=== PATIENT | female | born 1955 | race Caucasian/White ===

== ENCOUNTER 2017-05-10 13:41 | Emergency (ER) | payer SELFPAY ==
[~2017-05-10] VITALS: Ht 170.2 cm; Wt 99.8 kg
[2017-05-10 14:13] VITALS: BP 139/60
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
== END 2017-05-10 16:00 | disposition home or self-care (01) ==
LOC: ER 13:41
DX: S52.512A Displaced fracture of left radial styloid process, initial encounter for closed fracture (principal); M25.512 Pain in left shoulder; M25.522 Pain in left elbow; I10 Essential (primary) hypertension; V49.49XA Driver injured in collision with other motor vehicles in traffic accident, initial encounter; Y93.89 Activity, other specified; Y92.89 Other specified places as the place of occurrence of the external cause; Y99.8 Other external cause status
CPT/HCPCS: 73030; 73080; 73090; 73130; 99284

== ENCOUNTER → 2018-10-25 | Outpatient (CLI) | payer OTHER ==
--- NOTE | 2018-10-25 13:32 | KCIC ---
EXAM: Dual energy x-ray absorptiometry (DEXA). HISTORY: Postmenopausal female presents for osteoporosis screening. COMPARISON: None. TECHNIQUE: Dual energy x-ray absorptiometry of the lumbar spine and left hip was performed. Calculation of bone mineral density based on standard deviations above or below the expected young adult normal value (T-score) was completed. FINDINGS: The average bone mineral density in the 1st through 4th lumbar vertebrae is 0.931 g/cmxcm, corresponding with a T-score of -1.1. The average total bone mineral density in the left hip is 0.886 g/cmxcm, corresponding with a T-score of -0.5. IMPRESSION: 1. Osteopenia measured at the lumbar spine. 2. Normal bone mineral density measured at the left hip. Note: Definitions established by the World Health Organization: 1. Normal: T-score is -1.0 or above. 2. Osteopenia: T-score is between -1.0 and -2.5 . 3. Osteoporosis: T-score is -2.5 or below. Electronically signed by: Lida Gomez MD (10/25/2018 1:28 PM) [facility]
--- NOTE | 2018-10-25 15:11 | KCIC ---
Bilateral digital screening mammograms: Reason for examination: Routine screening. Comparison is made to previous study dated 05/05/2014. Interpretation was made with the benefit of CAD. The skin and nipples show no abnormalities. No abnormal lymph nodes are seen. The breast parenchyma is predominantly fatty. (Breast density: Category A.) There are no dominant masses, suspicious calcifications or architectural distortions. Benign calcifications are again seen. Impression: No evidence of malignancy. Recommend routine screening. BI-RADS Category 2: Benign. "Our facility is accredited by the [employer] Mammography Program." This patient's information has been entered into a reminder system for the patient to be notified with the results of her examination and a target date for the next mammogram. Electronically signed by: Laurie Antoine MD (10/25/2018 3:07 PM) [facility]
== END | disposition home or self-care (01) ==
LOC: KCIC DEXA 12:16
PROVIDERS: ATTEND Family Medicine
DX: Z12.31 Encounter for screening mammogram for malignant neoplasm of breast (principal); M85.88 Other specified disorders of bone density and structure, other site; Z78.0 Asymptomatic menopausal state
CPT/HCPCS: 77067; 77080

== ENCOUNTER → 2018-11-15 | Day surgery (SDC) | payer OTHER ==
[~2018-11-15] MED LIST: ALBU2.5V8 INH; ASPI-630 PO; ERGO500027 PO; HYDROmorphone 2 MG/ML VIAL IV PRN; KETO10DR6 EACHEYE; LIDOCAINE 1% PF 2 ML VIAL. ID PRN; MORPHINE SULFATE 4 MG/ML VIAL. IV PRN; MULT1TAB52 PO; MV-M1TAB29 PO; ONDANSETRON PF 4 MG/2 ML VIAL. IV PRN; OTC POTASSIUM PO; OXYC1TAB15 PO; PROCHLORPERAZINE 10 MG/2 ML VIAL. IV PRN; PROPOFOL 20 ML IV ONE; PROPOFOL 60 ML IV ONE; RANI150C PO; SERT100T PO; TRIA1TAB3 PO; VENTOLIN HFA18 GM INH; fentaNYL PF VIAL 100 MCG/2 ML VIAL IV PRN
[2018-11-15] MEDS: IV RINGERS,LACTATED 1000ML 1,000 ML IV SCH ×2 (07:00→10:06)
[2018-11-15 11:00] VITALS: BP 120/59
--- NOTE | 2018-11-16 17:10 | PATHOLOGY ---
[facility] Accession Number: [id number] . 01 Material submitted: . PART A: SMALL BOWEL BIOPSY PART B: RANDOM GASTRIC BIOPSY PART C: DISTAL ESOPHAGEAL BIOPSY PART D: BIOPSY NODULARITY ASCENDING COLON . 01 Clinical history: . Reflux, rectal bleeding. B: Rule out H. pylori. C: Rule out Membreno's . 02 Diagnosis: A. Small bowel biopsy: - No significant pathologic abnormalities. . B. Random gastric biopsy: - Chronic gastritis, mild. . C. Esophageal biopsy, distal esophagus: - Segments of hyperplastic squamous esophageal mucosa and gastric mucosa showing chronic inflammation, consistent with reflux esophagitis. . D. Colon biopsy, ascending colon: - Focal mild edema and recent hemorrhage of lamina propria. . (JPM:malissa; 11/16/2018) MBR/11/16/2018 . 02 Comment: Sections of the small bowel biopsy reveal segments of duodenal and small intestine mucosa. Where best oriented, mucosal villi show no sprue-like changes or significant inflammatory changes. Sections of the random gastric biopsy reveal segments of gastric body and antral/body transition mucosa showing congestion and mild chronic inflammation. A properly controlled immunoperoxidase stain for Helicobacter is negative for Helicobacter organisms. Sections of the distal esophageal biopsy reveal segments of tangentially oriented mildly hyperplastic squamous esophageal mucosa, and gastric mucosa showing mild to moderate chronic inflammation. The findings are consistent with reflux esophagitis. There is no evidence of Membreno's change, dysplasia, or malignancy. Sections of the ascending colon biopsy reveal segments of colonic mucosa showing focal mild mucosal edema and recent hemorrhage within the lamina propria. There is no evidence of an acute colitis. There is no evidence of a chronic destructive colitis, lymphocytic colitis, or collagenous colitis. . Special stain performed: Immunoperoxidase stain for Helicobacter on B1. . (JPM:malissa; 11/16/2018) . 02 Electronically signed: . Ruben De Los Santos MD, Pathologist NPI- [id number] . 01 Gross description: . A. The specimen is received in formalin, labeled "Odilia Kendall, small bowel, BX", are four irregular fragment of espinoza tissues measuring 0.7 x 0.4 x 0.1 cm in aggregate, entirely submitted in A1. . B. The specimen is received in formalin, labeled "Odilia Kendall, random gastric biopsy, rule out H. pylori", are four irregular fragments of espinoza tissues measuring 0.5 x 0.3 x 0.1 cm in aggregate, entirely submitted in B1. . C. The specimen is received in formalin, labeled "Odilia Kendall, distal esophagus BX, rule out Membreno's", are two irregular fragments of espinoza-peterson white tissue is measuring 0.2 cm and 0.5 cm in greatest dimension, entirely submitted in C1. . D. The specimen is received in formalin, labeled "Bouchra Kendallna, BX, nodularity ascending colon", are two irregular fragments of espinoza-white tissue is measuring 0.4 cm in greatest dimension each, entirely submitted in D1. ([facility]; 11/15/2018) [facility]S . 02 Pathologist provided ICD-10: K29.50, K21.0, K21.9, K62.5 . 02 CPT . 659184, 558742, 078642, 797979, [id number] Specimen Comment: A courtesy copy of this report has been sent to Specimen Comment: [phone], . Specimen Comment: Report sent to / DR WHITE Specimen Comment: A duplicate report has been generated due to demographic updates. Performed at: 01 [facility] [address], [place], [place] [id number] MD Michele Nicholas MD Phone: [phone] Performed at: 02 [facility] [address] [place], [place] [id number] MD Ruben De Los Santos MD Phone: [phone]
== END | disposition home or self-care (01) ==
LOC: ENDOS 07:55
PROVIDERS: ATTEND Internal Medicine
DX: K22.2 Esophageal obstruction (principal); K57.30 Diverticulosis of large intestine without perforation or abscess without bleeding; K44.9 Diaphragmatic hernia without obstruction or gangrene; K29.50 Unspecified chronic gastritis without bleeding; K31.89 Other diseases of stomach and duodenum; K22.8 Other specified diseases of esophagus; K21.0 Gastro-esophageal reflux disease with esophagitis; K63.89 Other specified diseases of intestine; E66.9 Obesity, unspecified; Z68.41 Body mass index [BMI] 40.0-44.9, adult; I10 Essential (primary) hypertension; Z90.710 Acquired absence of both cervix and uterus; Z98.890 Other specified postprocedural states; F41.9 Anxiety disorder, unspecified; Z82.3 Family history of stroke; Z83.3 Family history of diabetes mellitus; Z82.49 Family history of ischemic heart disease and other diseases of the circulatory system; Z87.891 Personal history of nicotine dependence; Z79.82 Long term (current) use of aspirin; Z79.899 Other long term (current) drug therapy; Z88.1 Allergy status to other antibiotic agents
CPT/HCPCS: 43239; 45380; 88305; 88342; J2704

== ENCOUNTER → 2018-12-12 | Outpatient (CLI) | payer OTHER ==
[2018-11-15 11:00] VITALS: BP 120/59
[~2018-12-12] MED LIST changes: -HYDROmorphone 2 MG/ML VIAL IV PRN; -LIDOCAINE 1% PF 2 ML VIAL. ID PRN; -MORPHINE SULFATE 4 MG/ML VIAL. IV PRN; -ONDANSETRON PF 4 MG/2 ML VIAL. IV PRN; -PROCHLORPERAZINE 10 MG/2 ML VIAL. IV PRN; -PROPOFOL 20 ML IV ONE; -PROPOFOL 60 ML IV ONE; -fentaNYL PF VIAL 100 MCG/2 ML VIAL IV PRN
[2018-12-12 10:25] LABS: BASO % 1 % (0-3); EOS # 0.2 x10^3/uL (0.0-0.7); EOS % 3 % (0-3); HEMATOCRIT 43.3 % (36.0-47.0); HEMOGLOBIN 14.6 g/dL (12.0-15.5); LYMPH # 1.8 x10^3/uL (1.0-4.8); LYMPH % 28 % (24-48); MEAN CORPUSCULAR HEMOGLOBIN 29 pg (25-35); MEAN CORPUSCULAR HGB CONC 34 g/dL (31-37); MEAN CORPUSCULAR VOLUME 86 fL (79-100); MONO # 0.4 x10^3/uL (0.0-1.1); MONO % 6 % (0-9); NEUT # 3.9 x10^3uL (1.8-7.7); NEUT % 62 % (31-73); PLATELET COUNT 212 x10^3/uL (140-400); RED BLOOD COUNT 5.03 x10^6/uL (3.50-5.40); RED CELL DISTRIBUTION WIDTH 13.3 % (11.5-14.5); WHITE BLOOD COUNT 6.3 x10^3/uL (4.0-11.0)
[2018-12-12 10:35] LABS: CREATININE 0.9 mg/dL (0.6-1.0); GFR 63.7; POTASSIUM 3.3 mmol/L (3.5-5.1)
--- NOTE | 2018-12-12 13:48 | EKG ---
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
--- NOTE | 2018-12-13 19:52 | NUR ---
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 PETER CALLED BACK AT 1620 12/13/2018 AND SAID WILL REVIEW PRE - OP TEST REPORTS TOMORROW 12/14/18.
== END | disposition home or self-care (01) ==
LOC: SURGPAT 09:43
PROVIDERS: ATTEND Surgery
DX: Z01.818 Encounter for other preprocedural examination (principal); K43.2 Incisional hernia without obstruction or gangrene
CPT/HCPCS: 36415; 80048; 85025; 93005

== ENCOUNTER 2018-12-15 08:15 | Inpatient (IN) | payer OTHER ==
[~2018-12-15] VITALS: Ht 165.1 cm; Wt 111.1 kg
[~2018-12-15 08:15] MED LIST changes: +HYDROmorphone 2 MG/ML VIAL IV PRN; +IV RINGERS,LACTATED 1000ML 1,000 ML IV SCH; +LIDOCAINE 1% PF 2 ML VIAL. ID PRN; +MORPHINE SULFATE 4 MG/ML VIAL. IV PRN; +ONDANSETRON PF 4 MG/2 ML VIAL. IV PRN; -OXYC1TAB15 PO; +PROCHLORPERAZINE 10 MG/2 ML VIAL. IV PRN; +fentaNYL PF VIAL 100 MCG/2 ML VIAL IV PRN
[2018-12-15] MEDS ORDERED: MIDAZOLAM HCL/PF 2 MG/2 ML VIAL. ONE (08:16)
[2018-12-15] MEDS ORDERED: fentaNYL PF VIAL 100 MCG/2 ML VIAL ONE (08:16)
[2018-12-15] MEDS ORDERED: ROCURONIUM 50 MG/5 ML VIAL. ONE (08:16)
[2018-12-15] MEDS ORDERED: SEVOFLURANE 61 TO 120 MINUTES. IH ONE (08:17)
[2018-12-15] MEDS ORDERED: PROPOFOL 20 ML IV ONE (08:17)
[2018-12-15] MEDS ORDERED: LIDOCAINE 2% PF 5 ML VIAL. ONE (08:17)
[2018-12-15] MEDS ORDERED: ONDANSETRON PF 4 MG/2 ML VIAL. ONE (08:17)
[2018-12-15] MEDS ORDERED: KETOROLAC 30 MG/ML INJ FOR OR. INJ ONE (08:17)
[2018-12-15] MEDS ORDERED: DEXAMETHASONE SOD PHOS 20 MG/5 ML VIAL. ONE (08:17)
[2018-12-15] MEDS ORDERED: BUPIVACAINE-EPI 0.25%-1:200000 MPF 30 ML VIAL. ONE (09:11)
[2018-12-15] MEDS ORDERED: FAMOTIDINE 20 MG/2 ML VIAL ONE (09:22)
[2018-12-15] MEDS ORDERED: NEOSTIGMINE 10 MG/10 ML VIAL. ONE (09:42)
[2018-12-15] MEDS ORDERED: GLYCOPYRROLATE 1 MG/5 ML VIAL. ONE (11:04)
--- NOTE | 2018-12-15 11:04 | PDOC4 ---
Operative Note Operative Note Date: 12/15/2018 Preoperative diagnosis: Incisional ventral hernia Postoperative diagnosis: Same Procedure: Robotic-assisted laparoscopic ventral hernia repair with mesh Surgeon: Yevgeniy Specimen: None Dictation: Patient is 63-year-old female complained of painful bulge at her umbilicus where she previously had had an incision for laparoscopy a number of years ago this area is also painful. Procedure of robotic-assisted laparoscopic ventral hernia repair with mesh was explained to the patient in detail all risks and benefits were also discussed including bleeding infection to intra- abdominal contents possibly necessitating further or open operations. The patient seemed to understand and gave both verbal and written consent to have the procedure performed. Patient was taken to the operating room was the supine position general anesthesia was initiated once patient was sleep and intubated her abdomen was prepped and draped usual sterile fashion using ChloraPrep and area in the left upper quadrant was injected with quarter percent Marcaine with epinephrine incision was made with a blade scalpel and using a 5 mm Visiport was placed under direct visualization and the abdomen creating pneumoperitoneum abdomen was inspected with a 5 mm scope and showed a incarcerated omentum within the hernia defect. A da Marisabel camera port 8 mm was placed in the left mid abdomen a second da Marisabel port was placed in the left lower abdomen and the 5 mm Visiport was changed out for a 8mm da Marisabel port. The da Marisabel robot was brought in and docked all port sites and the surgeon went to the robotic console. An grasper and Endo Mel scissors the incarcerated omentum within the hernia defect was reduced. The fascial defect was then closed with a running 20 V-block nonabsorbable suture. The defect was then covered with ventriculitis T mesh which was sewn in place with 20 the lock absorbable suture. Once this was complete the pneumoperitoneum reduced reduced all ports removed the dementia robot undocked. The port sites were closed for septic to the Monocryl Mastisol Steri-Strips and island dressings were applied. The patient was awakened and asked waited in the operating room taken to recovery in stable condition all sponge instrument needle counts listed as correct S Corley blood loss 5 mL TRA SYKES MD Dec 15, 2018 11:04
--- NOTE | 2018-12-15 11:05 | DISCH ---
DISCHARGE INSTRUCTIONS Condition on Discharge Condition on Discharge: Stable Activity After Discharge Activity Instructions for Disc: Avoid exertion Other activity instructions: no lifting more than 20 pounds for 2 weeks Diet after Discharge Diet after Discharge: Regular Wound Incision Care Other wound/incision instructi: May shower in 24 hours Contacting the DRJuly after DC Call your doctor for: If your condition worsens Follow-Up Follow up with: Dr. Sykes in 2 weeks TRA SYKES MD Dec 15, 2018 11:05
[2018-12-15] MEDS ORDERED: SUGAMMADEX SODIUM 200 MG/2 ML VIAL. IVP ONE (11:15)
[2018-12-15] MEDS ORDERED: NALOXONE 0.4 MG/ML VIAL. ONE (11:16)
[2018-12-15] MEDS: NALOXONE 0.4 MG/ML VIAL. IV PRN ×2 (11:54→12:17)
[2018-12-15] MEDS ORDERED: OXYC1TAB15 PO (12:06)
[2018-12-15] MEDS ORDERED: oxyCODONE/APAP 5/325 1 TAB TABLET PO ONE ×2 (12:45)
[2018-12-15] MEDS ORDERED: ALBUTEROL SULFATE 2.5 MG/3 ML NEBU. ONE (13:23)
[2018-12-15] MEDS ORDERED: ALBUTEROL SULFATE 2.5 MG/3 ML NEBU. NEB ONE (13:30)
[2018-12-15] MEDS ORDERED: FUROSEMIDE 20 MG/2 ML VIAL. ONE (14:09)
[2018-12-15] MEDS ORDERED: FUROSEMIDE 20 MG/2 ML VIAL. IVP ONE (14:15)
[2018-12-15 14:19] LABS: BASE EXCESS ABG 3 mmol/L (-3-3); HCO3 ABG 30 mmol/L (21-28); PCO2 ABG 55 mmHg (35-46); PO2 ABG 87 mmHg (65-108); SAT O2 ABG 96 % (92-99)
[2018-12-15 14:20] LABS: FIO2 ABG 36
[2018-12-15] MEDS ORDERED: INSULIN LISPRO 100 UNIT/ML 3ML VIAL. SQ ONE (14:45)
--- NOTE | 2018-12-15 14:57 | RAD ---
PORTABLE CHEST 1V History: Low oxygen saturation Comparison: June 10, 2010 Findings: AP portable view of the chest is submitted. There is again enlargement of the pericardial cardiac silhouette. There is no significant pleural fluid or pneumothorax. No new lobar consolidation is identified. Mild fullness of the hilar regions is similar. Impression: 1. No lobar consolidation is identified by radiograph. There is again enlargement of the pericardial cardiac silhouette. Electronically signed by: Benito Coon MD (12/15/2018 2:53 PM) [facility]
[2018-12-15] MEDS ORDERED: ONDANSETRON PF 4 MG/2 ML VIAL. IV PRN (16:00)
[2018-12-15] MEDS ORDERED: oxyCODONE/APAP 5/325 1 TAB TABLET PO PRN ×2 (16:00)
[2018-12-15] MEDS ORDERED: 0.9 % SODIUM CHLORIDE 10 ML DISP.SYRIN. IV PRN (16:00)
[2018-12-15] MEDS ORDERED: MORPHINE SULFATE 2 MG/ML VIAL. IV PRN (16:00)
[2018-12-15] MEDS: IV DEXTROSE 5%-LACT RINGERS 1,000 ML IV SCH (16:30)
--- NOTE | 2018-12-15 16:48 | PDOC ---
PULMONARY PROGRESS NOTES Vitals Vital Signs Date Time Temp Pulse Resp B/P (MAP) Pulse Ox O2 Delivery O2 Flow Rate FiO2 12/15/18 15:00 66 22 153/63 88 Nasal Cannula 1 12/15/18 14:15 98.1 98.1 Labs Laboratory Tests Test 12/15/18 08:46 12/15/18 11:37 12/15/18 14:10 12/15/18 14:33 Glucose (Fingerstick) 119 mg/dL (70-99) 153 mg/dL (70-99) 233 mg/dL (70-99) O2 Saturation 96 % (92-99) Arterial Blood pH 7.36 (7.35-7.45) Arterial Blood pCO2 at Patient Temp 55 mmHg (35-46) Arterial Blood pO2 at Patient Temp 87 mmHg (65-108) Arterial Blood HCO3 30 mmol/L (21-28) Arterial Blood Base Excess 3 mmol/L (-3-3) FiO2 36 Laboratory Tests Test 12/15/18 08:46 12/15/18 11:37 12/15/18 14:10 12/15/18 14:33 Glucose (Fingerstick) 119 mg/dL (70-99) 153 mg/dL (70-99) 233 mg/dL (70-99) O2 Saturation 96 % (92-99) Arterial Blood pH 7.36 (7.35-7.45) Arterial Blood pCO2 at Patient Temp 55 mmHg (35-46) Arterial Blood pO2 at Patient Temp 87 mmHg (65-108) Arterial Blood HCO3 30 mmol/L (21-28) Arterial Blood Base Excess 3 mmol/L (-3-3) FiO2 36 Medications Active Scripts Medications Dose Route/Sig Max Daily Dose Days Date Category Percocet 5-325 Mg Tablet (Oxycodone/Acetaminophen) 1 Each Tablet 1-2 Tab PO PRN Q4HRS PRN 12/15/18 Reported [Otc Potassium] 1 PO DAILY 12/12/18 Reported Ventolin Hfa Inhaler (Albuterol Sulfate) 18 Gm Hfa.aer.ad 2 Puff INH PRN 3-4XDAILY PRN 12/12/18 Reported Proair Hfa Inhaler (Albuterol Sulfate) 8.5 Gm Hfa.aer.ad 1 Puff INH PRN Q6HRS PRN 12/12/18 Reported Alaway (Ketotifen Fumarate) 10 Ml Drops 1 Drop EACHEYE Q8HRS 12/12/18 Reported Vitamin D2 (Ergocalciferol (Vitamin D2)) 50,000 Unit Capsule 1 Cap PO WEEKLY 12/12/18 Reported Airborne Tablet Chewable (Mv-Min/Vit C/Glut/Katie Ac/Hc124) 1 Each Tab.chew 1 Each PO DAILY 12/12/18 Reported Zoloft (Sertraline Hcl) 100 Mg Tablet 50 Mg PO DAILY 11/15/18 Reported Aspirin 81 Mg Tab.chew 81 Mg PO DAILY 11/15/18 Reported Multivitamins (Multivitamin) 1 Each Tablet 1 Tab PO DAILY 11/15/18 Reported Ranitidine Hcl 150 Mg Capsule 150 Mg PO DAILY 11/15/18 Reported Triamterene-Hctz 37.5-25 Mg Tb (Triamterene/Hydrochlorothiazid) 1 Each Tablet 1 Tab PO DAILY 11/15/18 Reported Impression . EXPECTED ACUTE RESP FAILURE AFTER SURGERY SEC TO MORBID OBESITY AND PT WITH AECOPD SEE ORDERS THANKS MELANIE BRENNAN MD Dec 15, 2018 16:48
[2018-12-15 16:49] VITALS: BP 133/41
[2018-12-15] MEDS ORDERED: ALBUTEROL SULFATE 2.5 MG/3 ML NEBU. NEB PRN (17:00)
[2018-12-15] MEDS ORDERED: ALBUTEROL SULFATE 2.5 MG/3 ML NEBU. NEB SCH (17:00)
[2018-12-15] MEDS: methylPREDNISolone SOD SUCC PF 40 MG/ML VIAL. IV SCH ×2 (17:00→23:00)
[2018-12-15] MEDS: IPRATRPIUM/ALBUTEROL 0.5/2.5MG 3 ML NEBU. NEB SCH ×2 (17:30→20:31)
[2018-12-15] MEDS: KETOROLAC 15 MG/ML VIAL. IV SCH (18:00)
[2018-12-15 19:00] VITALS: BP 143/54
--- NOTE | 2018-12-15 19:33 | PDOC ---
SURGICAL PROGRESS NOTE Subjective Patient had issues with low O2 sats after surgery. She feels good tonight. Denies pain or shortness of breath Vital Signs Vital Signs Date Time Temp Pulse Resp B/P (MAP) Pulse Ox O2 Delivery O2 Flow Rate FiO2 12/15/18 16:49 98.1 74 17 133/41 (71) 96 Nasal Cannula 2.0 98.1 PATIENT HAS A ATKINSON: No General: Alert, Oriented X3, Cooperative, No acute distress Lungs: Clear to auscultation, Normal air movement, Other (O2 sats 97% on 2L) Labs Laboratory Tests Test 12/15/18 08:46 12/15/18 11:37 12/15/18 14:10 12/15/18 14:33 Glucose (Fingerstick) 119 mg/dL (70-99) 153 mg/dL (70-99) 233 mg/dL (70-99) O2 Saturation 96 % (92-99) Arterial Blood pH 7.36 (7.35-7.45) Arterial Blood pCO2 at Patient Temp 55 mmHg (35-46) Arterial Blood pO2 at Patient Temp 87 mmHg (65-108) Arterial Blood HCO3 30 mmol/L (21-28) Arterial Blood Base Excess 3 mmol/L (-3-3) FiO2 36 Laboratory Tests Test 12/15/18 08:46 12/15/18 11:37 12/15/18 14:10 12/15/18 14:33 Glucose (Fingerstick) 119 mg/dL (70-99) 153 mg/dL (70-99) 233 mg/dL (70-99) O2 Saturation 96 % (92-99) Arterial Blood pH 7.36 (7.35-7.45) Arterial Blood pCO2 at Patient Temp 55 mmHg (35-46) Arterial Blood pO2 at Patient Temp 87 mmHg (65-108) Arterial Blood HCO3 30 mmol/L (21-28) Arterial Blood Base Excess 3 mmol/L (-3-3) FiO2 36 Assessment/Plan Post surgical resp failure Improving Pulmonary consulted TRA SYKES MD Dec 15, 2018 19:33
--- NOTE | 2018-12-15 22:20 | NUR ---
RN paged Dr. Vuong regarding patients glucose of 290. Orders were received and implemented at that time. RN will continue to monitor.
[2018-12-15] MEDS ORDERED: DEXTROSE 50% 25 GM / 50ML DISP.SYRIN. IV PRN (22:30)
[2018-12-15 23:00] VITALS: BP 145/59
[2018-12-15] MEDS ORDERED: INSULIN LISPRO 300 UNITS/3 ML INSULN.PEN. SQ ONE (23:00)
--- NOTE | 2018-12-15 23:35 | NUR ---
RN paged Dr. Vuong to check on getting home meds restarted. Orders were received and implemented at that time.
[2018-12-16] MEDS: TRIAMTERENE/HCTZ 37.5/25MG TABLET. PO SCH ×2 (00:06→09:00)
[2018-12-16] MEDS: KETOROLAC 15 MG/ML VIAL. IV SCH ×3 (00:06→12:11)
[2018-12-16] MEDS: SERTRALINE 50 MG TABLET. PO SCH ×2 (00:06→09:00)
[2018-12-16] MEDS: FAMOTIDINE 20 MG TABLET. PO SCH ×2 (00:07→09:00)
[2018-12-16 03:00] VITALS: BP 119/48
--- NOTE | 2018-12-16 04:03 | CONS ---
DATE OF CONSULTATION: 12/15/2018 ATTENDING PHYSICIAN: Dr. Vuong. REASON FOR CONSULTATION: The patient seen in pulmonary consultation at the request of Dr. Vuong for acute respiratory failure, COPD. HISTORY OF PRESENT ILLNESS: The patient is a 63-year-old female with a history of umbilical hernia presenting for operative repair. She underwent a robotic-assisted laparoscopic ventral hernia repair with mesh. She was noted to have hypoxemia in the recovery room. She was initially placed on BiPAP. Eventually, she was weaned down to oxygen supplementation. She had an arterial blood gas revealing a pH of 7.36, PaCO2 of 55, paO2 of 87, bicarbonate was 30. I was asked to see her in consultation. The patient states over the last several days prior to admission, she was slightly more short of breath. She does have underlying COPD. She had a cough and wheezing. She normally uses p.r.n. albuterol. PAST MEDICAL HISTORY: Otherwise remarkable for: 1. Tobacco dependence, in remission, COPD, unknown FEV1. 2. Hypertension. 3. Morbid obesity. 4. Gastroesophageal reflux. 5. C. diff. 6. Anxiety. 7. Palpitation. 8. Hematuria. PAST SURGICAL HISTORY: Status post hysterectomy for cancer in 1986. She has had previous tonsillectomy. FAMILY HISTORY: Mother from hypertension, COPD and kidney disease. Father from complications of hypertension, diabetes and COPD. SOCIAL HISTORY: She quit tobacco approximately 10 years ago. She smoked for well over 30 years. ALLERGIES: CLINDAMYCIN. REVIEW OF SYSTEMS: CONSTITUTIONAL: No fever or chills. EYES: No changes in visual acuity. HEENT: No nasal congestion or sore throat. PULMONARY: As indicated above. CARDIOVASCULAR: No chest pain, no pressure. GASTROINTESTINAL: No nausea, vomiting, diarrhea. GENITOURINARY: No dysuria or frequency. MUSCULOSKELETAL: No localized muscle aches or joint pain. SKIN: No new skin rashes. NEUROLOGIC: No headaches, diplopia or blurred vision. PHYSICAL EXAMINATION: GENERAL: Morbid obese individual in no respiratory distress, currently on 2 liters of oxygen supplementation. HEENT: Eyes, the sclerae were nonicteric. NECK: Jugular venous distention could not be assessed secondary to body habitus. CHEST: Full expansion. LUNGS: Coarse breath sounds with mild expiratory wheeze. CARDIOVASCULAR: Regular rate and rhythm with S1, S2, no S3. ABDOMEN: Dressing in place. EXTREMITIES: No clubbing. NEUROLOGIC: The patient was awake, alert, following commands. A detailed neuro exam was not performed. LABORATORY DATA: As indicated above. Chest x-ray revealed cardiomegaly, otherwise no acute infiltrates. IMPRESSION: 1. Expected acute hypoxemic hypercapnic respiratory failure post-umbilical hernia repair. 2. Umbilical hernia repair. 3. Comorbidities including hypertension, morbid obesity, chronic obstructive pulmonary disease, gastroesophageal reflux and tobacco dependence, along with diabetes. PLAN: 1. We will continue oxygen supplementation. 2. Patient prior to admission was experiencing acute nonspecific bronchitis. We will treat the bronchitis with steroids and nebulized treatments. 3. A 6-minute walk prior to discharge. I do appreciate the privilege in sharing in this patient's care. MELANIE BRENNAN MD DR: ISAURO/danny JOB#: [id number] / [id number]
[2018-12-16] MEDS: methylPREDNISolone SOD SUCC PF 40 MG/ML VIAL. IV SCH ×2 (05:35→14:00)
[2018-12-16] MEDS: IV DEXTROSE 5%-LACT RINGERS 1,000 ML IV SCH (05:50)
[2018-12-16 07:00] VITALS: BP 137/55
[2018-12-16] MEDS: IPRATRPIUM/ALBUTEROL 0.5/2.5MG 3 ML NEBU. NEB SCH ×2 (07:33→11:43)
[2018-12-16] MEDS: INSULIN LISPRO 300 UNITS/3 ML INSULN.PEN. SQ SCH ×2 (09:06→12:20)
--- NOTE | 2018-12-16 09:07 | PDOC ---
SURGICAL PROGRESS NOTE Subjective Patient feeling well this morning denies any shortness of breath. She states she slept well and tolerating regular diet Vital Signs Vital Signs Date Time Temp Pulse Resp B/P (MAP) Pulse Ox O2 Delivery O2 Flow Rate FiO2 12/16/18 07:34 94 Nasal Cannula 2.0 12/16/18 03:00 97.6 86 18 119/48 (71) 97.6 I&O Intake and Output 12/16/18 07:00 Intake Total 1970 ml Output Total 675 ml Balance 1295 ml Intake Oral 1020 ml IV Total 950 ml Output Urine Total 650 ml Estimated Blood Loss 25 ml # Voids 3 PATIENT HAS A ATKINSON: No General: Alert, Oriented X3, Cooperative, No acute distress Abdomen: Normal bowel sounds, Soft, Other (incision clean dry and intact mild incisional tenderness) Labs Laboratory Tests Test 12/15/18 08:46 12/15/18 11:37 12/15/18 14:10 12/15/18 14:33 Glucose (Fingerstick) 119 mg/dL (70-99) 153 mg/dL (70-99) 233 mg/dL (70-99) O2 Saturation 96 % (92-99) Arterial Blood pH 7.36 (7.35-7.45) Arterial Blood pCO2 at Patient Temp 55 mmHg (35-46) Arterial Blood pO2 at Patient Temp 87 mmHg (65-108) Arterial Blood HCO3 30 mmol/L (21-28) Arterial Blood Base Excess 3 mmol/L (-3-3) FiO2 36 Test 12/15/18 20:36 12/16/18 08:10 Glucose (Fingerstick) 290 mg/dL (70-99) 262 mg/dL (70-99) Laboratory Tests Test 12/15/18 11:37 12/15/18 14:10 12/15/18 14:33 12/15/18 20:36 Glucose (Fingerstick) 153 mg/dL (70-99) 233 mg/dL (70-99) 290 mg/dL (70-99) O2 Saturation 96 % (92-99) Arterial Blood pH 7.36 (7.35-7.45) Arterial Blood pCO2 at Patient Temp 55 mmHg (35-46) Arterial Blood pO2 at Patient Temp 87 mmHg (65-108) Arterial Blood HCO3 30 mmol/L (21-28) Arterial Blood Base Excess 3 mmol/L (-3-3) FiO2 36 Test 12/16/18 08:10 Glucose (Fingerstick) 262 mg/dL (70-99) Assessment/Plan Status post laparoscopic ventral hernia repair developed low O2 saturations postoperatively. Seems to have done well overnight although with her and she saturated into the mid 80s From surgical standpoint okay to discharge home Will wait for pulmonary evaluation TRA SYKES MD Dec 16, 2018 09:07
--- NOTE | 2018-12-16 09:23 | PDOC ---
PULMONARY PROGRESS NOTES Subjective PT BETTER LESS SOA Vitals Vital Signs Date Time Temp Pulse Resp B/P (MAP) Pulse Ox O2 Delivery O2 Flow Rate FiO2 12/16/18 07:34 94 Nasal Cannula 2.0 12/16/18 03:00 97.6 86 18 119/48 (71) 97.6 ROS: No Nausea, No Chest Pain, No Abdominal Pain, No Increase Cough General: Alert Lungs: Clear Cardiovascular: S1 Abdomen: Soft Neuro Exam: Alert Extremities: No Edema Skin: Warm Labs Laboratory Tests Test 12/15/18 08:46 12/15/18 11:37 12/15/18 14:10 12/15/18 14:33 Glucose (Fingerstick) 119 mg/dL (70-99) 153 mg/dL (70-99) 233 mg/dL (70-99) O2 Saturation 96 % (92-99) Arterial Blood pH 7.36 (7.35-7.45) Arterial Blood pCO2 at Patient Temp 55 mmHg (35-46) Arterial Blood pO2 at Patient Temp 87 mmHg (65-108) Arterial Blood HCO3 30 mmol/L (21-28) Arterial Blood Base Excess 3 mmol/L (-3-3) FiO2 36 Test 12/15/18 20:36 12/16/18 08:10 Glucose (Fingerstick) 290 mg/dL (70-99) 262 mg/dL (70-99) Laboratory Tests Test 12/15/18 11:37 12/15/18 14:10 12/15/18 14:33 12/15/18 20:36 Glucose (Fingerstick) 153 mg/dL (70-99) 233 mg/dL (70-99) 290 mg/dL (70-99) O2 Saturation 96 % (92-99) Arterial Blood pH 7.36 (7.35-7.45) Arterial Blood pCO2 at Patient Temp 55 mmHg (35-46) Arterial Blood pO2 at Patient Temp 87 mmHg (65-108) Arterial Blood HCO3 30 mmol/L (21-28) Arterial Blood Base Excess 3 mmol/L (-3-3) FiO2 36 Test 12/16/18 08:10 Glucose (Fingerstick) 262 mg/dL (70-99) Medications Active Scripts Medications Dose Route/Sig Max Daily Dose Days Date Category Percocet 5-325 Mg Tablet (Oxycodone/Acetaminophen) 1 Each Tablet 1-2 Tab PO PRN Q4HRS PRN 12/15/18 Reported [Otc Potassium] 1 PO DAILY 12/12/18 Reported Ventolin Hfa Inhaler (Albuterol Sulfate) 18 Gm Hfa.aer.ad 2 Puff INH PRN 3-4XDAILY PRN 12/12/18 Reported Proair Hfa Inhaler (Albuterol Sulfate) 8.5 Gm Hfa.aer.ad 1 Puff INH PRN Q6HRS PRN 12/12/18 Reported [place] (Ketotifen Fumarate) 10 Ml Drops 1 Drop EACHEYE Q8HRS 12/12/18 Reported Vitamin D2 (Ergocalciferol (Vitamin D2)) 50,000 Unit Capsule 1 Cap PO WEEKLY 12/12/18 Reported Airborne Tablet Chewable (Mv-Min/Vit C/Glut/Katie Ac/Hc124) 1 Each Tab.chew 1 Each PO DAILY 12/12/18 Reported Zoloft (Sertraline Hcl) 100 Mg Tablet 50 Mg PO DAILY 11/15/18 Reported Aspirin 81 Mg Tab.chew 81 Mg PO DAILY 11/15/18 Reported Multivitamins (Multivitamin) 1 Each Tablet 1 Tab PO DAILY 11/15/18 Reported Ranitidine Hcl 150 Mg Capsule 150 Mg PO DAILY 11/15/18 Reported Triamterene-Hctz 37.5-25 Mg Tb (Triamterene/Hydrochlorothiazid) 1 Each Tablet 1 Tab PO DAILY 11/15/18 Reported Impression . IMPRESSION: 1. Expected acute hypoxemic hypercapnic respiratory failure post-umbilical hernia repair. 2. Umbilical hernia repair. 3. Comorbidities including hypertension, morbid obesity, chronic obstructive pulmonary disease, gastroesophageal reflux and tobacco dependence, along with diabetes. 4. POSITIVE NOC DESAT 5. CHACHA Plan . HOME O2 QHS OUTPT SLEEP STUDY DID WELL WITH 6 MIN WALK MELANIE BRENNAN MD Dec 16, 2018 09:23
--- NOTE | 2018-12-16 10:44 | NUR ---
[facility] following for discharge planning. Discussed with RN, pt is from home with son. Pt currently requiring oxygen, with her oxygen dropping. [facility] will continue to follow.
[2018-12-16 11:00] VITALS: BP 121/41
--- NOTE | 2018-12-16 15:36 | NUR ---
SW following. Discussed with RN, RN advised pt needing oxygen at night. SW met with pt, pt does not have a preference as to which oxygen provider. SW contacted Javier at [facility] to determine if they take pt's insurance[facility] so [facility] was sent. RN notified. Pt discharging home with self care. No further SW needs.
--- NOTE | 2018-12-16 16:11 | NUR ---
Pt was discharged to home at 1600 in stable condition with all personal belongings after reviewing all pertinent information including education, medications, follow up and at home care. Pt was instructed to call [facility] upon arriving home, nocturnal O2 desat study faxed to [facility], pt was escorted via WC and accompanied by staff and friend to the main exit where her daughter in law was waiting and drove pt home.
--- NOTE | 2018-12-16 18:05 | OP ---
DATE OF SURGERY: The patient underwent nocturnal desaturation study performed on room air. There were significant periods of oxyhemoglobin desaturation below 88%. IMPRESSION: Positive nocturnal desaturation study. PLAN: 1. Oxygen supplementation at 2 liters per nasal cannula at bedtime. 2. Polysomnogram. MELANIE BRENNAN MD DR: ISAURO/danny JOB#: [id number] / [id number]
== END 2018-12-16 16:00 | disposition home or self-care (01) | DRG 353 ==
LOC: SURG 08:15 → OBSVTOIN 16:08 → 4 NORTH 16:08
PROVIDERS: ADMIT Surgery; ATTEND Surgery
PROC: 8E0W4CZ Robotic Assisted Procedure of Trunk Region, Percutaneous Endoscopic Approach (ICD-10-PCS; 2018-12-15)
PROC: 0WUF4JZ Supplement Abdominal Wall with Synthetic Substitute, Percutaneous Endoscopic Approach (ICD-10-PCS; principal; 2018-12-15 09:45)
DX: K43.2 Incisional hernia without obstruction or gangrene (principal); J96.02 Acute respiratory failure with hypercapnia; J96.01 Acute respiratory failure with hypoxia; Z68.41 Body mass index [BMI] 40.0-44.9, adult; E11.9 Type 2 diabetes mellitus without complications; E66.01 Morbid (severe) obesity due to excess calories; F17.200 Nicotine dependence, unspecified, uncomplicated; G47.33 Obstructive sleep apnea (adult) (pediatric); I10 Essential (primary) hypertension; K21.9 Gastro-esophageal reflux disease without esophagitis; F41.9 Anxiety disorder, unspecified; F17.201 Nicotine dependence, unspecified, in remission; Z82.5 Family history of asthma and other chronic lower respiratory diseases; Z83.3 Family history of diabetes mellitus; Z90.710 Acquired absence of both cervix and uterus; Z82.49 Family history of ischemic heart disease and other diseases of the circulatory system
CPT/HCPCS: 36600; 71045; 82805; 82962; 94618; 94640; 94799; A7015; C1781; J0696; J1100; J1815; J1885; J1940; J2001; J2250; J2310; J2405; J2704; J2710; J2920; J3010; J3490; J7613; J7620

== ENCOUNTER 2019-05-21 23:06 | Emergency (ER) | payer OTHER ==
[~2019-05-21 23:06] MED LIST changes: -HYDROmorphone 2 MG/ML VIAL IV PRN; -IV RINGERS,LACTATED 1000ML 1,000 ML IV SCH; -LIDOCAINE 1% PF 2 ML VIAL. ID PRN; -MORPHINE SULFATE 4 MG/ML VIAL. IV PRN; -ONDANSETRON PF 4 MG/2 ML VIAL. IV PRN; +OXYC1TAB15 PO; -PROCHLORPERAZINE 10 MG/2 ML VIAL. IV PRN; -fentaNYL PF VIAL 100 MCG/2 ML VIAL IV PRN
== END 2019-05-21 23:28 | disposition left against medical advice (07) ==
LOC: ER 23:06
DX: I83.899 Varicose veins of unspecified lower extremity with other complications (principal); Z53.21 Procedure and treatment not carried out due to patient leaving prior to being seen by health care provider

== ENCOUNTER → 2020-10-02 | Outpatient (CLI) | payer MEDICARE ==
[~2020-10-02] MED LIST changes: +MULT-445 PO; -MULT1TAB52 PO
--- NOTE | 2020-10-02 17:34 | KCIC ---
Bilateral digital screening mammograms: Reason for examination: Routine screening. Comparison is made to previous studies dated 10/25/2018 and 05/05/2014. Interpretation was made with the benefit of CAD. The skin and nipples show no abnormalities. No abnormal lymph nodes are seen. The breast parenchyma i s predominantly fatty. (Breast density: Category A.) There are no dominant masses, suspicious calcifi cations or architectural distortions. Benign calcifications are again seen. Impression: No evidence of malignancy. Recommend routine screening. BI-RADS Category 2: Benign. "Our facility is accredited by the [employer] Mammography Program." This patient's information has been entered into a reminder system for the patient to be notified wit h the results of her examination and a target date for the next mammogram. Electronically signed by: Laurie Antoine MD (10/02/2020 5:31 PM) [id number]
== END ==
LOC: KCIC MAMMO 15:29
PROVIDERS: ATTEND Nurse Practitioner Gerontology
DX: Z12.31 Encounter for screening mammogram for malignant neoplasm of breast (principal)
CPT/HCPCS: 77067

== ENCOUNTER → 2021-11-03 | Outpatient (CLI) | payer MEDICARE ==
[~2021-11-03] MED LIST changes: +ACET500T68 PO; +BACI1PAC4 TP; +CHLO118L3 TP; +IBUP-1060 PO; +OMEP20CA16 PO; +VITA100022 PO
--- NOTE | 2021-11-03 11:52 | EKG ---
[facility] [address] [place] [address] Test Date: 2021-11-03 Test Time: 11:49:31 Pat Name: MARSHA HERMAN Department: Room: Gender: F Dev Technical Mgr: : [id number] Requested By: LEONARDA SEGOVIA Order Number: [id number] Reading MD: Scott Martin MD Measurements Intervals [place] Rate: 56 P: -39 NC: 128 QRS: 22 QRSD: 98 T: 21 QT: 422 QTc: 410 Interpretive Statements SINUS RHYTHM Electronically Signed On 11-03-2021 16:13:58 LEAD BURNER by Scott Martin MD
[2021-11-03 12:17] LABS: CALCIUM 8.3 mg/dL (8.5-10.1); CREATININE 0.8 mg/dL (0.6-1.0); GFR 72.2; POTASSIUM 3.5 mmol/L (3.5-5.1)
[2021-11-03 12:24] LABS: BASO # 0.1 x10^3/uL (0.0-0.2); BASO % 1 % (0-3); EOS # 0.2 x10^3/uL (0.0-0.7); EOS % 3 % (0-3); HEMATOCRIT 39.9 % (36.0-47.0); HEMOGLOBIN 13.4 g/dL (12.0-15.5); LYMPH # 1.5 x10^3/uL (1.0-4.8); LYMPH % 27 % (24-48); MEAN CORPUSCULAR HEMOGLOBIN 28 pg (25-35); MEAN CORPUSCULAR HGB CONC 34 g/dL (31-37); MEAN CORPUSCULAR VOLUME 82 fL (79-100); MONO # 0.3 x10^3/uL (0.0-1.1); MONO % 6 % (0-9); NEUT # 3.5 x10^3/uL (1.8-7.7); NEUT % 64 % (31-73); PLATELET COUNT 169 x10^3/uL (140-400); RED BLOOD COUNT 4.87 x10^6/uL (3.50-5.40); RED CELL DISTRIBUTION WIDTH 13.2 % (11.5-14.5); WHITE BLOOD COUNT 5.4 x10^3/uL (4.0-11.0)
[2021-11-03 12:40] LABS: PROTHROMBIN TIME PATIENT 13.1 SEC (11.7-14.0)
== END ==
LOC: SURGPAT 10:45
PROVIDERS: ATTEND Plastic Surgery
DX: Z01.818 Encounter for other preprocedural examination (principal); C44.519 Basal cell carcinoma of skin of other part of trunk; Z20.822 Contact with and (suspected) exposure to COVID-19
CPT/HCPCS: 36415; 80048; 85025; 85610; 85730; 93005

== ENCOUNTER → 2021-11-04 | Day surgery (SDC) | payer MEDICARE, MEDICAID ==
[2021-11-03 11:25] VITALS: BP 142/61
[~2021-11-04] VITALS: Ht 165.1 cm; Wt 102.0 kg
[~2021-11-04] MED LIST changes: +ACETAMINOPHEN 500 MG TABLET PO ONE; +BACITRACIN TOPICAL OINT PACKET. TP ONE; +DEXAMETHASONE SOD PHOS 4 MG/ML VIAL ONE; +HYDROmorphone 2 MG/ML INJ. IVP PRN; +IBUPROFEN 400 MG TABLET. PO ONE; +IV RINGERS,LACTATED 1000ML 1,000 ML IV SCH; +LIDOCAINE 1%/EPI 1:100,000 20 ML VIAL. ONE; +LIDOCAINE 2% PF 5 ML VIAL. ONE; +MORPHINE SULFATE 2 MG/ML INJ. IVP PRN; +ONDANSETRON PF 4 MG/2 ML VIAL. ONE; +PROCHLORPERAZINE 10 MG/2 ML VIAL. IVP PRN; +PROPOFOL 10 MG/ML (20ML) VIAL. IV ONE; +SEVOFLURANE 31 TO 60 MINUTES. IH ONE; +ceFAZolin SODIUM 3 GM in IV DEXTROSE 5% 100ML 100 ML IV PRN; +fentaNYL PF VIAL 100 MCG/2 ML VIAL IVP PRN; +fentaNYL PF VIAL 100 MCG/2 ML VIAL ONE
[2021-11-04 07:03] VITALS: BP 142/60
--- NOTE | 2021-11-04 09:33 | PDOC4 ---
OPERATIVE NOTE Date: Date: Nov 04, 2021 Pre-Op Diagnosis: Basal cell carcinoma of skin of the chest Post-Op Diagnosis: Same Procedure Performed: Excision of basal cell carcinoma of skin of the chest 3.5cm x 2.2cm x0.7 cm CPT 66886 Intermediate closure of chest wound , 3.5cm x 2.2cm x0.7 cm CPT 33315 Incision [id number], pathology [id number], closure [id number] Surgeon: Tiffanie Segovia MD Anesthesia Type: General Blood Loss: 10mL Specimans Obtained: Basal cell carcinoma of skin of the chest Findings: Frozen sections negative for cancer Complications: None Operative Note: Informed consent was obtained in the perioperative holding area. The risks of bleeding, infection, wound dehiscence and wound healing issues, the need to return to excise additional tissue, need for revision procedures were discussed with the patient. She understood the risks and desired to proceed. The patient was brought to the OR and placed on the OR table in the supine position. A timeout was completed verifying the correct patient and procedure. SCDs were applied to the lower extremities. General anesthesia was induced. Preoperative antibiotics were given. The chest was prepped with Chloroprep and draped in the usual sterile fashion. Markings were made to encompass the biopsy site as well as the visually erythematous skin surrounding it. The entire excision area measured 3.5cm x 2.2 cm. 0.7cm with included 2mm margins. A #15 scalpel was used to incise the skin and the scalpel was used to completely excise the mass through the mid subcutaneous tissues. The specimen was marked and sent to pathology for frozen section analysis. The pathologist reported negative margins. A hemostat was used to widely undermine the circumference of the wound approximately 4 cm to achieve a tension free approximation of the tissue. The deep subcutaneous tissue was closed with 3-0 Viryl to close the space. The deep dermis was approximated with 3-0 Vicryl suture. The skin was closed with running 4-0 Monocryl suture. Mastisol and steristrips were applied. An island bandage covered the incision. The patient tolerated the procedure well and was transferred to PACU in stable condition without immediate complication. TIFFANIE SEGOVIA MD Nov 04, 2021 09:31
[2021-11-04 10:35] VITALS: BP 140/65
--- NOTE | 2021-11-05 18:08 | PATHOLOGY ---
[facility] Accession Number: [id number] . 01 Material submitted: . chest - BASAL CELL OF CHEST- FS . 01 Clinical history: . SHORT STITCH SUPERIOR, LONG STITCH AT 0900 . 02 Frozen section diagnosis: . FROZEN SECTION INTRAOPERATIVE DIAGNOSIS: Skin and subcutaneous tissue, basal cell of chest excision: - Previous biopsy site showing scarring and suture granuloma - no residual basal cell carcinoma identified. Margins of resection free of neoplasm. . The results are reported to Dr. Yepez in the operating room. (JPM:pj; 11/04/2021) . . FROZEN SECTION GROSS DESCRIPTION: The specimen is received fresh for intraoperative consultation and is designated "basal cell of chest". This consists of an ellipse of espinoza skin and subcutaneous tissue measuring up to 3.2 x 2.1 x 0.7 cm in greatest dimension. There is a short suture attached at the mid point of one long side margin. This denotes the superior margin. There is a long stitch attached at one end of the ellipse and this denotes the 9:00 position. There is a central area of pale espinoza scarring oriented along the 12:00-6:00 axis measuring approximately 1 cm in length. The 9:00-12:00 and 12:00-3:00 margin is inked with black ink. The 3:00-6:00 margin is inked with blue ink. The 6:00-9:00 margin is inked with orange ink. Sections from the central area of scar with adjacent 12:00 and 6:00 margins are submitted for frozen section as FSA1. Additional sections from the central portion of the specimen to include the 12:00 and 6:00 margins are submitted as A2. Sections to the 3:00 and 9:00 margins are submitted as A3. . (JPM:pj; 11/04/2021) . Frozen section performed at [facility], [address] [place] [address], [place] [address] RICH/FARIDA . 02 Diagnosis: Skin and subcutaneous tissue, chest lesion excision: - Focal residual superficial basal cell carcinoma, inked margins of excision free of neoplasm. - Previous biopsy site showing scarring with focal chronic inflammation and foreign body (suture) granulomas. - Small incidental seborrheic keratosis. (JPM:joselyn; 11/05/2021) QMS 11/05/2021 1658 Local . 02 Electronically signed: . Ruben De Los Santos MD, Pathologist NPI- [id number] . 01 Gross description: . SEE FROZEN SECTION FOR GROSS DESCRIPTION . DKA/QTP 11/05/2021 1044 Local . 02 Pathologist provided ICD-10: C44.519, L90.5, L92.9, L82.1 . 02 CPT . 172595, [id number] Specimen Comment: A courtesy copy of this report has been sent to [phone], [phone] Specimen Comment: [id number] Specimen Comment: Report sent to / DR FU Performed at: 01 [facility] [address], [place], [place] [id number] MD Mason Drew MD Phone: [phone] Performed at: 02 [facility] [address], [place] [id number] MD Ruben De Los Santos MD Phone: [phone]
== END | disposition home or self-care (01) ==
LOC: SURG 06:39
PROVIDERS: ATTEND Plastic Surgery
DX: C44.519 Basal cell carcinoma of skin of other part of trunk (principal); L90.5 Scar conditions and fibrosis of skin; L92.9 Granulomatous disorder of the skin and subcutaneous tissue, unspecified; L82.1 Other seborrheic keratosis; I10 Essential (primary) hypertension; E66.9 Obesity, unspecified; K21.9 Gastro-esophageal reflux disease without esophagitis; M19.90 Unspecified osteoarthritis, unspecified site; F41.9 Anxiety disorder, unspecified; F32.9 Major depressive disorder, single episode, unspecified; Z90.710 Acquired absence of both cervix and uterus; Z98.890 Other specified postprocedural states; Z79.899 Other long term (current) drug therapy; Z79.82 Long term (current) use of aspirin; Z87.891 Personal history of nicotine dependence; Z88.8 Allergy status to other drugs, medicaments and biological substances
CPT/HCPCS: 11604; 12032; 88305; 88331; A4364; A4930; A6219; A6258; J1100; J2405; J2704; J3010; J3490; A4452